=== PATIENT | female | born 1965 | race Caucasian/White ===

== ENCOUNTER → 2016-09-28 | Outpatient (CLI) | payer OTHER ==
[~2016-09-28] MED LIST: AMOX875T2 PO; CEPH-507 PO; FLX20C PO; GABA800T2 PO; HYDR-3702 PO; LEVO125T70 PO; LOVA20TA2 PO; SIMV40TA2 PO; [UNRECOGNIZED DRUG - OTHER] PO; prozac PO; synthroid PO
== END ==
LOC: LAB 11:58
PROVIDERS: ATTEND Family Medicine
DX: E03.9 Hypothyroidism, unspecified (principal)
CPT/HCPCS: 36415; 84443

== ENCOUNTER → 2016-09-29 | Outpatient (CLI) | payer OTHER | LOC: LAB 10:34 | PROVIDERS: ATTEND Family Medicine | DX: E03.9 Hypothyroidism, unspecified (principal) | CPT/HCPCS: 36415; 84439 ==

== ENCOUNTER → 2016-12-03 | Outpatient (CLI) | payer OTHER | LOC: LAB 12:12 | PROVIDERS: ATTEND Family Medicine | DX: E03.8 Other specified hypothyroidism (principal) | CPT/HCPCS: 36415; 84443 ==